=== PATIENT | female | born 1955 | race Caucasian/White ===

== ENCOUNTER 2018-02-25 23:31 | Emergency (ER) | payer OTHER ==
[~2018-02-25] VITALS: Ht 160 cm; Wt 87.9 kg
[~2018-02-25 23:31] MED LIST: ALDACTAZIDE 251 EACH PO; AMLODIPINE BESYL5 MG PO; ASPIR-TRIN325 M1 PO; AVAPRO300 MG PO; CATAPRES0.2 MG PO; CHLOR-TRIMETON12 MG PO; CLARITIN-D 121 EACH PO; CLEOCIN300 MG PO; CLONIDINE HCL0.1 MG PO; Calan PO; DOXYCYCLINE HY100 MG PO; HYDROCHLOROTHIA25 MG PO; Hydrodiuril,Oretic,E PO; K-DUR20 MEQ PO; LISINOPRIL40 MG PO; METOPROLOL SUCC25 MG PO; METOPROLOL TART50 MG PO; MICARDIS20 MG PO; MICARDIS40 MG PO; NASONEX17 GM BOTH NARES; PROVENTIL HFA6.7 GM IH; VERAPAMIL HCL40 MG PO; ZYRTEC10 M2 PO
[2018-02-25 23:57] LABS: HEMATOCRIT 39.7 % (36.0-46.0); HEMOGLOBIN 13.3 G/DL (11.9-15.5); MCH 28.1 PG (29.0-34.0); MCHC 33.5 G/DL (30.0-36.0); MCV 83.9 FL (83-99); PLATELET COUNT 200 K/uL (156-360); RBC DIS.WIDTH-CV 12.7 % (11.8-14.6); RBC DIS.WIDTH-SD 38.4 % (39-53); RED BLOOD COUNT 4.73 M/uL (3.80-5.20); WHITE BLOOD COUNT 9.3 K/uL (4.1-10.2)
[2018-02-26] LABS: APPEARANCE CLEAR ((CLEAR)); BILIRUBIN NEGATIVE; BLOOD SMALL; COLOR YELLOW ((YELLOW)); GLUCOSE (STRIP) NEGATIVE; KETONES NEGATIVE; LEUKOCYTES LARGE; NITRITE NEGATIVE; PROTEIN (STRIP) NEGATIVE
[2018-02-26 00:06] LABS: CHLORIDE 102 mEq/L (99-109); SODIUM 143 mEq/L (136-147)
[2018-02-26 00:08] LABS: GLUCOSE 105 mg/dL (70-99)
[2018-02-26 00:12] LABS: BACTERIA NONE SEEN /HPF; EPITHELIAL CELLS RARE /HPF; MUCUS TRACE /LPF; UCUL ADDED? YES; WHITE BLOOD CELLS TNTC /HPF (0-5)
[2018-02-26 00:12] LABS: GFR ESTIMATE (CALCULATED) > 59 mL/min/
[2018-02-26 00:13] LABS: UREA NITROGEN (BUN) 16 mg/dL (9-23)
[2018-02-26] MEDS ORDERED: CIPRO500 MG PO (00:36)
[2018-02-26 01:23] VITALS: BP 155/84
== END 2018-02-26 01:24 | disposition home or self-care (01) ==
LOC: EME 23:31
DX: N39.0 Urinary tract infection, site not specified (principal); B96.20 Unspecified Escherichia coli [E. coli] as the cause of diseases classified elsewhere; E11.9 Type 2 diabetes mellitus without complications; I10 Essential (primary) hypertension; E78.5 Hyperlipidemia, unspecified; J45.909 Unspecified asthma, uncomplicated; Z87.891 Personal history of nicotine dependence; Z87.440 Personal history of urinary (tract) infections; Z90.49 Acquired absence of other specified parts of digestive tract; Z90.89 Acquired absence of other organs; Z90.710 Acquired absence of both cervix and uterus; Z88.1 Allergy status to other antibiotic agents; Z88.5 Allergy status to narcotic agent; Z88.0 Allergy status to penicillin; Z88.8 Allergy status to other drugs, medicaments and biological substances
CPT/HCPCS: 80048; 81003; 85027; 87077; 87086; 87186; 99281; 99284